=== PATIENT | female | born 2000 | race Caucasian/White ===

== ENCOUNTER 2021-10-31 14:35 | Emergency (ER) | payer BC ==
[2021-10-31 14:51] VITALS: BP 99/39; PULSE 94; TEMP 98.6; BMI 21.4
[2021-10-31 17:44] LABS: BASO % 1.1 % (0-2.0); EOS % 3.5 % (0-4.5); HEMATOCRIT 40.5 % (32.4-45.2); HEMOGLOBIN 13.7 GM/dL (10.7-15.3); LYMPH % 36.6 % (8-40); MCH 30.6 pg (25.7-33.7); MCHC 33.7 g/dl (32.0-36.0); MEAN CELL VOLUME 90.7 fl (80-96); MEAN PLT VOLUME 8.9 fl (7.5-11.1); NEUT % 51.8 % (42.8-82.8); PLATELET COUNT 299 10^3/uL (134-434); RBC 4.47 M/mm3 (3.60-5.2); RDW 13.6 % (11.6-15.6); WHITE BLOOD COUNT 6.4 K/mm3 (4.0-10.0)
[2021-10-31 17:58] LABS: CHLORIDE 106 mmol/L (98-107); SODIUM 140 mmol/L (136-145)
[2021-10-31 18:00] LABS: ALBUMIN 3.7 g/dl (3.4-5.0); CALCIUM 8.9 mg/dL (8.5-10.1)
[2021-10-31 18:01] LABS: ANION GAP 6 MMOL/L (8-16); BLOOD UREA NITROGEN 8.3 mg/dL (7-18); CO2 28 mmol/L (21-32); GLUCOSE,RANDOM 81 mg/dL (74-106)
[2021-10-31 18:04] LABS: CREATININE 0.7 mg/dL (0.55-1.3); SGOT/AST 17 U/L (15-37); SGPT/ALT 20 U/L (13-61)
[2021-10-31 18:05] LABS: BILIRUBIN,TOTAL 0.5 mg/dL (0.2-1); TOT PROT 6.9 g/dl (6.4-8.2)
[2021-10-31 18:07] LABS: ALK PHOS 84 U/L (45-117)
[2021-11-01 13:07] LABS: SARS-CoV-2 NAA Not Detected (Not Detected)
== END 2021-10-31 18:54 | disposition home or self-care (01) ==
LOC: JER 14:35
DX: R55 Syncope and collapse (principal)
CPT/HCPCS: 36415; 80053; 82550; 84484; 85025; 87804; 87807; 93005; 93010; 99284-25; C9803; U0003; U0005

== ENCOUNTER 2022-06-26 13:48 | Emergency (ER) | payer BC ==
[2022-06-26 14:08] VITALS: BP 132/68; PULSE 100; RESP 18; TEMP 98.3; BMI 22.6
[2022-06-26] MEDS ORDERED: SODIUM CHLORIDE 1,000 ML IV STA (14:55)
[2022-06-26] MEDS ORDERED: ACETAMINOPHEN 1000 MG/100 ML BAG IVPB ONE (14:55)
[2022-06-26] MEDS ORDERED: METOCLOPRAMIDE HCL INJECTION 10 MG/2 ML VIAL IVPUSH ONE (14:56)
[2022-06-26] MEDS ORDERED: METOCLOPRAMIDE HCL INJECTION 10 MG/2 ML VIAL ONE (15:07)
[2022-06-26] MEDS ORDERED: ACETAMINOPHEN INJECTION 100 ML IVPB ONE (15:10)
[2022-06-26 15:24] LABS: BASO % 0.6 % (0-2.0); EOS % 2.8 % (0-4.5); HEMATOCRIT 36.9 % (32.4-45.2); LYMPH % 22.4 % (8-40); MCH 31.6 pg (25.7-33.7); MCHC 35.1 g/dl (32.0-36.0); MEAN PLT VOLUME 8.2 fl (7.5-11.1); MONO % 5.4 % (3.8-10.2); NEUT % 68.8 % (42.8-82.8); PLATELET COUNT 282 10^3/uL (134-434); RDW 13.1 % (11.6-15.6); WHITE BLOOD COUNT 9.2 K/mm3 (4.0-10.0)
[2022-06-26 15:43] LABS: CHLORIDE 104 mmol/L (98-107); SODIUM 128 mmol/L (136-145)
[2022-06-26 15:46] LABS: ALBUMIN 2.9 g/dl (3.4-5.0); BLOOD UREA NITROGEN 7.2 mg/dL (7-18); CALCIUM 8.2 mg/dL (8.5-10.1); CO2 24 mmol/L (21-32); GLUCOSE,RANDOM 77 mg/dL (74-106)
[2022-06-26 15:49] LABS: CREATININE 0.5 mg/dL (0.55-1.3)
[2022-06-26 15:51] LABS: TOT PROT 7.4 g/dl (6.4-8.2)
[2022-06-26 15:52] LABS: ALK PHOS 54 U/L (45-117)
[2022-06-26 16:01] LABS: ANION GAP 0 MMOL/L (8-16); SGOT/AST 134 U/L (15-37); SGPT/ALT 26 U/L (13-61)
== END 2022-06-26 15:56 | disposition home or self-care (01) ==
LOC: JER 13:48 → JERFT 13:48
PROC: 3E0333Z Introduction of Anti-inflammatory into Peripheral Vein, Percutaneous Approach (ICD-10-PCS; principal; 2022-06-26)
PROC: 3E033GC Introduction of Other Therapeutic Substance into Peripheral Vein, Percutaneous Approach (ICD-10-PCS; 2022-06-26)
PROC: 3E033GC Introduction of Other Therapeutic Substance into Peripheral Vein, Percutaneous Approach (ICD-10-PCS; 2022-06-26)
PROC: 3E0337Z Introduction of Electrolytic and Water Balance Substance into Peripheral Vein, Percutaneous Approach (ICD-10-PCS; 2022-06-26)
DX: O26.891 Other specified pregnancy related conditions, first trimester (principal); G44.89 Other headache syndrome; Z3A.13 13 weeks gestation of pregnancy
CPT/HCPCS: 36415; 80053; 85025; 99284-25

== ENCOUNTER 2022-09-15 17:03 | Emergency (ER) | payer BC ==
[2022-09-15 17:23] VITALS: RESP 20; BMI 24.5
[2022-09-15 20:36] VITALS: BP 110/59; PULSE 123; TEMP 97.8
== END 2022-09-15 21:35 ==
LOC: JER 17:03
DX: O98.512 Other viral diseases complicating pregnancy, second trimester (principal); J09.X2 Influenza due to identified novel influenza A virus with other respiratory manifestations; Z3A.24 24 weeks gestation of pregnancy
CPT/HCPCS: 0241U-QW; 99283-25